=== PATIENT | female | born 1990 | race African-American/Black ===

== ENCOUNTER 2019-03-31 10:08 | Day surgery (SDC) | payer OTHER ==
[2019-03-31 11:24] LABS: BASO % 0.2 % (0-2.0); EOS % 0.7 % (0-4.5); HEMOGLOBIN 12.7 GM/dL (10.7-15.3); LYMPH % 36.7 % (8-40); MCH 31.5 pg (25.7-33.7); MCHC 34.4 g/dl (32.0-36.0); MEAN CELL VOLUME 91.6 fl (80-96); MONO % 14.3 % (3.8-10.2); NEUT % 48.1 % (42.8-82.8); PLATELET COUNT 214 K/MM3 (134-434); RBC 4.04 M/mm3 (3.60-5.2); RDW 13.2 % (11.6-15.6); WHITE BLOOD COUNT 3.5 K/mm3 (4.0-10.0)
--- NOTE | 2019-03-31 12:09 | HP ---
Admitting History and Physical - Admission History of Present Illness: 28 yo @ 9 4/7 wks by LMP with Missed s/p ultrasound 03/29/2019 which revealed a fetus measuring 9 1/7 wks without heart tones She denies any vaginal bleeding, cramping or pain. History Source: Patient Limitations to Obtaining History: No Limitations - Past Medical History Cardiovascular: No: Aortic Insufficiency Pulmonary: Yes: Asthma Gastrointestinal: No: GERD ...: Yes ...: 3 ...Para: 0 Heme/Onc: No: Anemia - Past Surgical History Additional Past Surgical History: D&C prior eTOP - Alcohol/Substance Use Hx Alcohol Use: No History of Substance Use: reports: None - Social History History of Recent Travel: No Review of Systems - Review of Systems Constitutional: reports: No Symptoms Neck: reports: No Symptoms Respiratory: reports: No Symptoms Gastrointestinal: reports: No Symptoms Genitourinary: reports: No Symptoms Musculoskeletal: reports: No Symptoms Endocrine: reports: No Symptoms Psychiatric: reports: No Symptoms Physical Examination Constitutional: Yes: Well Nourished, No Distress, Calm Respiratory: Yes: Regular, CTA Bilaterally Gastrointestinal: Yes: Normal Bowel Sounds, Soft Edema: No Psychiatric: Yes: Alert, Oriented Labs: CBC, BMP 03/31/19 10:36 Assessment/Plan 28 yo @ 9 wks, MAB 1. Consents reviewed and signed risks, benefits, alternatives and complications discussed including infection, bleeding requiring transfusion, uterine perforation, scar tissue formation, risk of infertility discussed 2. blood type pending 3. Discussed postoperative medications 4. SCDs for DVT prophylaxis 5. Will proceed to OR
[2019-03-31] MEDS ORDERED: IBUPROFEN 400 MG TABLET (FP) PO PRN (12:35)
[2019-03-31] MEDS ORDERED: ACETAMINOPHEN 325 MG TABLET (FP) PO PRN (12:35)
[2019-03-31] MEDS ORDERED: LIDOCAINE HCL/PF 2% SDV 5ML VIAL ONE (12:52)
[2019-03-31] MEDS ORDERED: PROPOFOL 20 ML ONE ×2 (12:52→13:03)
[2019-03-31] MEDS ORDERED: MIDAZOLAM HCL 2 MG/2 ML SINGLE DOSE VIAL ONE (12:53)
[2019-03-31] MEDS ORDERED: KETOROLAC TROMETHAMINE 30 MG/1 ML VIAL ONE (13:21)
[2019-03-31] MEDS ORDERED: DOXYCYCLINE INJECTION 100 MG in SODIUM CHLORIDE 100 ML IVPB ONE (13:30)
[2019-03-31] MEDS ORDERED: DOXYCYCLINE HYCLATE 100 MG CAPSULE PO ONE (13:30)
[2019-03-31] MEDS ORDERED: DOXYCYCLINE INJECTION 100 MG in DEXTROSE 5%-WATER - 100 ML IVPB ONE (13:34)
[2019-03-31] MEDS ORDERED: oxyCODONE HCL 5 MG TABLET PO PRN (13:34)
[2019-03-31] MEDS ORDERED: ONDANSETRON 4 MG/2 ML VIAL IVPUSH PRN (13:34)
[2019-03-31] MEDS ORDERED: LACTATED RINGERS SOLUTION 1,000 ML IV SCH (13:45)
--- NOTE | 2019-03-31 13:56 | OP ---
Operative Note - Note: Operative Date: 03/31/19 Pre-Operative Diagnosis: missed at 9 wks Operation: suction dilation and curettage Findings: 9 wk uterus, thin endometrial stripe at the Surgeon: Alexandra Dudley Anesthesiologist/CARTON MAKING MACHINE OPERATOR: Karolina Martinez Anesthesia: General Specimens Removed: endometrial curettage Estimated Blood Loss (mls): 20 Fluid Volume Replaced (mls): 300
[2019-03-31 16:40] VITALS: BP 110/64; PULSE 69; TEMP 98.1
--- NOTE | 2019-04-01 13:33 | OP ---
DATE OF OPERATION: 03/31/2019 ATTENDING PHYSICIAN: Alexandra Dudley MD PREOPERATIVE DIAGNOSIS: Missed at 9 weeks. POSTOPERATIVE DIAGNOSIS: Missed at 9 weeks. SURGERY: Suction dilation and curettage. FINDINGS: A 9-week-size uterus. Bedside ultrasound with thin endometrial stripe at the end of procedure. SURGEON: Alexandra Dudley MD ANESTHESIOLOGIST: Karolina Martinez MD ANESTHESIA: General. SPECIMENS REMOVED: Endometrial curettings. ESTIMATED BLOOD LOSS: 20 mL. FLUIDS GIVEN: 300. INDICATIONS: Patient is a 28-year-old, 3, para 0, found to have a missed in the office, desiring surgical management. She was counseled for any risks, benefits, alternatives, and complications of the procedure, including infection, bleeding, damage to surrounding organs. She expressed understanding. DESCRIPTION OF PROCEDURE: Was brought to the operating room. When anesthesia was found to be adequate, patient was prepped and draped in normal sterile fashion in the dorsal lithotomy position using Ferdinand stirrups. A weighted speculum was placed in the patient's vagina. Anterior vagina was retracted using asims retractor. The anterior lip of the cervix was grasped using an Allis clamp and the cervix was gently dilated to accommodate a size 23-Hanks dilator. A size-8 curved suction curette was placed in the endometrial cavity and vacuum aspiration was applied. When the vacuum reached approximately 70 mmHg, curetting was performed. Approximately 3 passes were performed. Gentle, sharp curetting was performed and a gritty texture was noted. A bedside ultrasound revealed a thin endometrial stripe. All instruments were removed from the patient's vagina. The patient was awoken from anesthesia and brought to recovery room in stable condition. Ania [id number] MTDD
--- NOTE | 2019-04-02 13:42 | PATH ---
Surgical Pathology Report Patient Name: LAUREANO JOHNSON [facility]. Rec. #: [id number] /Age/Gender: 1990 (Age: 28) / F Account: [id number] Location: [facility] Taken: 03/31/2019 Received: 04/01/2019 Reported: 04/02/2019 Physicians: Alexandra Dudley Specimen(s) Received PRODUCTS OF CONCEPTION Clinical History Missed at 9 weeks Final Diagnosis PRODUCTS OF CONCEPTION, DILATION AND CURETTAGE: IMMATURE CHORIONIC VILLI CONSISTENT WITH PRODUCTS OF CONCEPTION. Electronically Signed Rayne Lang M.D. Gross Description Received in formalin labeled "products of conception," is a 7.0 x 6 0 x 0.6 cm aggregate of nicole soft tissue fragments. Villous tissue is identified. No somatic tissue is identified. A data entry representative portion is submitted in one cassette. /04/01/2019 saudi/04/01/2019
== END 2019-03-31 16:30 | disposition home or self-care (01) ==
LOC: JASU-SURG 10:08
PROVIDERS: ATTEND Obstetrics & Gynecology
PROC: 10D17ZZ Extraction of Products of Conception, Retained, Via Natural or Artificial Opening (ICD-10-PCS; principal; 2019-03-31 12:00)
DX: O02.1 Missed abortion (principal); Z3A.09 9 weeks gestation of pregnancy
CPT/HCPCS: 36415; 85025; 86850; 86900; 86901; 88305-TC; 94760

== ENCOUNTER 2019-04-19 13:16 | Emergency (ER) | payer OTHER ==
[2019-04-19 13:33] VITALS: BP 133/85; PULSE 103; BMI 12.0
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
[2019-04-19] MEDS ORDERED: IBUPROFEN 600 MG TABLET (FP) PO ONE ×2 (14:09)
[2019-04-19 14:59] VITALS: TEMP 100.9
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
== END 2019-04-19 15:11 | disposition home or self-care (01) ==
LOC: JERFT 13:16
DX: S09.8XXA Other specified injuries of head, initial encounter (principal); W20.8XXA Other cause of strike by thrown, projected or falling object, initial encounter; Y93.89 Activity, other specified; Y92.238 Other place in hospital as the place of occurrence of the external cause; Y99.0 Civilian activity done for income or pay
CPT/HCPCS: 70450-TC; 99284-25